=== PATIENT | female | born 1990 | race Caucasian/White ===

== ENCOUNTER → 2016-05-24 | Outpatient (CLI) | payer OTHER ==
[~2016-05-24] MED LIST: ATV1 PO; CALCTAB5 PO; CYAN100020 PO; CYCL10TA6 PO; FING1CAP PO; FLUO20CA36 PO; FRCT/ PO; GADAVIST IV PRN; HYDR-4079 PO; LIDO5DIS10 TD; LORA10TA5 PO; NRN600 PO; OMEP20CA9 PO; ONDA4TAB10 SL; SENN-58 PO; SENN-61 PO; VTMD PO; ZOLP10TA6 PO
--- NOTE | 2016-05-24 12:51 | DIAGNOSTIC IMAGING REPORT ---
MRI OF THE BRAIN COMBO CLINICAL HISTORY: Multiple sclerosis. Headache and dizziness. COMPARISON STUDY: Prior MRI examinations of the brain, most recently dated 10/31/2015. TECHNIQUE: MRI of the brain was performed utilizing various T1 and T2-weighted sequences in the axial, sagittal, and coronal planes. Contrast-enhanced sequences were acquired following the administration of 10.4 cc of Gadavist. The examination is performed utilizing the multiple sclerosis protocol. FINDINGS: Brain parenchyma: Again seen are numerous foci of T2 signal abnormality within the subcortical and periventricular white matter. This is consistent with the reported history of multiple sclerosis, and has not significant change from 10/31/2015. Lesions are also identified within the brain stem in the right cerebral peduncle. A 5 mm focus of abnormal enhancement is seen in the right parietal region on axial image #16. No additional foci of abnormal enhancement are identified on the postcontrast images. There is no hemorrhage or mass effect. There is no restricted diffusion to suggest acute ischemia. No enhancing mass lesion is identified. Rose-white matter differentiation is preserved. No extra-axial fluid collection is seen. The cerebellar tonsils are normal in configuration. Ventricles, sulci, and cisterns: Normal in configuration. Pituitary and sella: Unremarkable. Intracranial vasculature: Normal flow voids are maintained at the skull base. Orbits: The bony orbits are grossly intact. Orbital contents are normal in appearance. Sinuses and mastoids: There is a large retention cyst in the left maxillary antrum. The remaining paranasal sinuses and the mastoid air cells are clear. Calvarium: Unremarkable. Cervical cord: Partially visualized cervical spinal cord is normal in morphology and signal intensity. IMPRESSION: 1. There are numerous foci of T2 signal abnormality seen throughout the subcortical and periventricular white matter as detailed above. These are typical in appearance for the reported clinical history of multiple sclerosis, and the distribution has not significantly changed from 10/31/2015. 2. There is a 5 mm focus of abnormal enhancement within the right parietal white matter which suggests a focus of active demyelination. No additional foci of abnormal enhancement are seen. 3. There is no hemorrhage or evidence of acute ischemia. Electronically signed by: Derian Hanks M.D. 05/24/2016 12:49 PM Dictated Date/Time: 05/24/2016 12:42 PM
== END | disposition home or self-care (01) ==
LOC: C.MRIBC 11:28
PROVIDERS: ATTEND Psychiatry & Neurology Neurology
DX: G35 Multiple sclerosis (principal); R26.9 Unspecified abnormalities of gait and mobility; R51 Headache; R76.0 Raised antibody titer; Z79.899 Other long term (current) drug therapy; G43.709 Chronic migraine without aura, not intractable, without status migrainosus; F32.9 Major depressive disorder, single episode, unspecified; F41.9 Anxiety disorder, unspecified; E55.9 Vitamin D deficiency, unspecified; Z88.5 Allergy status to narcotic agent

== ENCOUNTER → 2016-09-02 | Outpatient (CLI) | payer OTHER ==
[~2016-09-02] MED LIST changes: -GADAVIST IV PRN; -HYDR-4079 PO
[2016-09-07 21:53] LABS: HERPES SIMPLEX CULT SOURCE GENITAL-VULVA; HERPES SIMPLEX VIRUS CULT ISOLATED (NOT ISOLATED)
[2016-09-08 08:36] LABS: HSVTYPE2REFLEX ONLY!DON'T ORDR ISOLATED (NOT ISOLATED)
== END | disposition home or self-care (01) ==
LOC: C.LABSPEC 13:30
PROVIDERS: ATTEND Physician Assistant
DX: N76.6 Ulceration of vulva (principal)

== ENCOUNTER → 2016-09-24 | Outpatient (CLI) | payer OTHER ==
[~2016-09-24] MED LIST changes: +GADAVIST IV PRN
--- NOTE | 2016-09-24 08:53 | DIAGNOSTIC IMAGING REPORT ---
Brain MRI WITH AND WITHOUT CONTRAST HISTORY: Multiple sclerosis. Abnormal gait. TECHNIQUE: Multiplanar multisequence MRI of the brain was performed both before and after the intravenous administration of contrast. COMPARISON STUDY: Brain MRI 05/24/2016. FINDINGS: There are no areas of restricted diffusion to suggest acute infarction. The midline structures are intact. Stable 2 cm retention cyst within the left maxillary sinus. The orbits are unremarkable. Multiple scattered foci of T2 hyperintensity seen within the white matter of the supratentorial brain, minerva, and right middle cerebellar peduncle are again noted. The majority of these are not significantly changed. This is consistent with the patient's history of multiple sclerosis. Increase in size in the 1 cm T2 hyperintense focus within the subcortical white matter the right parietal lobe best seen on coronal T2 sequence image 17. This previously measured 5 mm. In addition, this area demonstrates enhancement consistent with active demyelination. The mastoid air cells are clear. The ventricles and sulci are within normal limits for age. There is no mass, hematoma, midline shift. The major vascular flow-voids at the skull base are well maintained. Postcontrast sequences show no areas of abnormal enhancement. IMPRESSION: Increase in size in a 1 cm focus of demyelination within the right parietal subcortical white matter. This also demonstrates enhancement consistent with active demyelination which remains unchanged from the prior study. The remaining white matter plaques within the supratentorial and infratentorial brain are not significantly changed consistent with the patient's history of multiple sclerosis. Electronically signed by: Antonio Hernandez M.D. 09/24/2016 8:52 AM Dictated Date/Time: 09/24/2016 8:44 AM
== END | disposition home or self-care (01) ==
LOC: C.MRI 07:39
PROVIDERS: ATTEND Psychiatry & Neurology Neurology
DX: G35 Multiple sclerosis (principal)

== ENCOUNTER → 2017-04-05 | Outpatient (CLI) | payer OTHER ==
[~2017-04-05] MED LIST changes: -GADAVIST IV PRN; -LORA10TA5 PO; +LORA10TA6 PO
== END | disposition home or self-care (01) ==
LOC: C.PATHSPEC 17:47
PROVIDERS: ATTEND Surgery
DX: L98.8 Other specified disorders of the skin and subcutaneous tissue (principal)

== ENCOUNTER 2018-05-08 11:08 | Inpatient (IN) ==
[2018-05-08] MEDS ORDERED: SODIUM CHLORIDE 0.9% 1000ML 1,000 ML IV ONE (11:34)
[2018-05-08] MEDS ORDERED: HYDROmorphone INJ 1 MG/ML SYRINGE IV STA (11:34)
[2018-05-08] MEDS ORDERED: ONDANSETRON INJ 2 MG/ML 2 ML VIAL IV STA (11:34)
--- NOTE | 2018-05-08 11:44 | Emergency Department Note ---
History of Present Illness General Chief complaint: Flank Pain Stated complaint: MS FLAIR & KIDNEY STONE PAIN Time Seen by Provider: 05/08/18 11:18 History of Present Illness This patient is a 27-year-old female that returns to the emergency department ambulatory with complaints of worsening left flank pain, decrease in urination and nausea for the last several days. The patient was seen in the emergency department on 05/06. A CAT scan was performed and showed left-sided kidney stones. The patient was sent home with oxycodone, which has not been helping with the left flank pain. She currently rates her discomfort a 12/05. It is worse with movement. The patient is also complaining of a "MS flare." Associated symptoms include headache, abnormal gait, fatigue and slurred speech. The patient's mother is also concerned that she is not emptying her bladder. She is unsure if this is related to the ureteral stone versus an MS flare. Home Medications Home Medications Medication Instructions Recorded Confirmed Type duftskytks-iuheexlnhyopr-obgl 1 - 2 tab PO BID PRN 05/06/18 05/08/18 History [Fioricet] calcium carbonate [Calcium 600] 600 mg PO QAM 05/06/18 05/08/18 History cyclobenzaprine 5 - 10 mg PO BID PRN 05/06/18 05/08/18 History dextroamphetamine-amphetamine 10 mg PO QAM 05/06/18 05/08/18 History divalproex 250 mg PO BID 05/06/18 05/08/18 History docusate sodium [Colace] 100 mg PO BID PRN 05/06/18 05/08/18 History ergocalciferol (vitamin D2) 50,000 unit PO 2XWK 05/06/18 05/08/18 History etonogestrel [Nexplanon] 1 dose SUBDERMAL CONTINOUS 05/06/18 05/08/18 History fingolimod [Gilenya] 0.5 mg PO QAM 05/06/18 05/08/18 History gabapentin 600 mg PO BID 05/06/18 05/08/18 History hydrocodone-acetaminophen 1 tab PO UD PRN 05/06/18 05/08/18 History lidocaine 1 patch TOPICAL DAILY PRN 05/06/18 05/08/18 History loratadine [Claritin] 10 mg PO QAM 05/06/18 05/08/18 History lorazepam 2 mg PO HS PRN 05/06/18 05/08/18 History ondansetron 4 mg PO TID PRN 05/06/18 05/08/18 History oxycodone 5 - 10 mg PO Q6H PRN #15 cap 05/06/18 05/08/18 Rx pantoprazole 40 mg PO QAM 05/06/18 05/08/18 History quetiapine 50 mg PO BID 05/06/18 05/08/18 History sennosides [senna] 8.6 mg PO BID 05/06/18 05/08/18 History topiramate 100 mg PO BID 05/06/18 05/08/18 History zolpidem 10 mg PO HS 05/06/18 05/08/18 History ibuprofen 800 mg PO UD 05/08/18 05/08/18 History tamsulosin [Flomax] 0.4 mg PO HS 05/08/18 05/08/18 History Allergies Allergy/AdvReac Type Severity Reaction Status Date / Time codeine Allergy Unknown HTN Verified 05/08/18 12:37 latex Allergy Unknown RASH Verified 05/08/18 12:37 morphine Allergy Unknown HTN, Verified 05/08/18 12:37 LIGHTHEADED Past Med/Surg History Medical History Multiple sclerosis Social History Current Living Situation: Alone Other Information That Helps Us Care for You: No Feels Safe at Home: Yes Safety Concerns: Feels Safe At This Time Smoking Status: Never smoker Hx Alcohol Use: Yes Alcohol type: wine Alcohol Intake Frequency: a few times a month Hx Substance Use: No Beliefs That Will Affect Care: None Communication Ability: Effective Lining Closer Required: No Review of Systems A total of 10 systems reviewed and were otherwise negative Physical Exam Vital Signs Vital Signs - 24 hr 05/08/18 11:11 05/08/18 15:00 05/08/18 17:48 Temperature 37 C Temperature Source Oral Sepsis Recent Fever Within 48 Hours No Sepsis Action Taken by Nursing No Action Required Pulse Rate 117 H 89 Pulse Rate [Finger] 76 Pulse Rhythm Regular Pulse Rhythm [Finger] Regular Pulse Strength Normal Pulse Strength [Finger] Normal Respiratory Rate 20 18 18 Respiratory Effort / Characteristics Non-Labored Spontaneous Non-Labored Spontaneous Respiratory Depth Normal Normal Respiratory Pattern Regular Blood Pressure 121/77 135/84 Blood Pressure [Left Arm] Blood Pressure [Right Arm] 123/91 Blood Pressure Mean 91 Blood Pressure Mean [Left Arm] Blood Pressure Mean [Right Arm] 101 Blood Pressure Position [Left Arm] Pulse Oximetry 97 98 99 Oxygen Delivery Method Room Air Room Air Room Air 05/08/18 18:27 Temperature 36.5 C Temperature Source Oral Sepsis Recent Fever Within 48 Hours Sepsis Action Taken by Nursing Pulse Rate Pulse Rate [Finger] 97 H Pulse Rhythm Pulse Rhythm [Finger] Regular Pulse Strength Pulse Strength [Finger] Normal Respiratory Rate 18 Respiratory Effort / Characteristics Non-Labored Respiratory Depth Normal Respiratory Pattern Regular Blood Pressure Blood Pressure [Left Arm] 134/89 Blood Pressure [Right Arm] Blood Pressure Mean Blood Pressure Mean [Left Arm] 104 Blood Pressure Mean [Right Arm] Blood Pressure Position [Left Arm] Sitting Pulse Oximetry 99 Oxygen Delivery Method Room Air Constitutional WD/WN, vitals as above Eyes PERRL, conjunctivae normal, anicteric sclerae ENMT Oral mucosa slightly dry Neck trachea midline Respiratory normal respiratory effort, lungs clear to auscultation Cardiovascular RRR, no murmur, no edema Gastrointestinal (Abdomen) normal bowel sounds, soft, nontender, no hepatosplenomegaly Left-sided CVA tenderness noted. Musculoskeletal no cyanosis or clubbing, extremities motor strength 5/5 Skin Warm and dry Neurologic Cranial nerves grossly intact. Cerebellar function intact. Slightly slow to answer questions. Occasional slurred speech noted. Lymphatic No lymphadenopathy appreciated. Course Patient was seen and examined Vital signs including blood pressure were reviewed medications list was verified with patient Labs were obtained, and a saline lock was established Dilaudid 1 mg IV, Zofran 4 mg IV and 1 L of normal saline ordered Imaging was performed and reviewed Upon reassessment, the patient was still complaining of pain. She was given an additional dose of Dilaudid. Her workup was reviewed. She was ordered Rocephin 1 g IV. The patient was reassessed and appeared more comfortable. I discussed her workup with the patient and the patient's mother. They voiced understanding, and were in agreement with my plan The case was also discussed with my supervising physician I then spoke with the [facility] service. They kindly agreed to evaluate the patient for possible further diagnosis and treatment. Consultations Consultation #1: Dr. Yoon Administered Medications Divalproex Sodium (Depakote Delay Release) 250 mg PO BID ANCA Stop: 06/07/18 20:59 Last Admin: 05/08/18 21:06 Dose: 250 mg Gabapentin (Neurontin) 600 mg PO BID ANCA Stop: 06/07/18 20:59 Last Admin: 05/08/18 21:07 Dose: 600 mg Oxycodone HCl (Roxicodone Immediate Rel) 5 mg PO Q6H PRN PRN Reason: Severe Pain Stop: 05/18/18 18:26 Last Admin: 05/08/18 20:04 Dose: 5 mg Quetiapine Fumarate (Seroquel) 50 mg PO BID ANCA Stop: 06/07/18 20:59 Last Admin: 05/08/18 21:07 Dose: 50 mg Sennosides (Senokot) 8.6 mg PO BID ANCA Stop: 06/07/18 20:59 Last Admin: 05/08/18 21:07 Dose: 8.6 mg Tamsulosin HCl (Flomax) 0.4 mg PO HS ANCA Stop: 06/07/18 20:59 Last Admin: 05/08/18 21:08 Dose: 0.4 mg Topiramate (Topamax) 100 mg PO BID ANCA Stop: 06/07/18 20:59 Last Admin: 05/08/18 21:07 Dose: 100 mg Discontinued Medications Hydromorphone HCl (Dilaudid) 1 mg IV NOW STA Stop: 05/08/18 11:35 Last Admin: 05/08/18 11:57 Dose: 1 mg Hydromorphone HCl (Dilaudid) 0.5 mg IV NOW STA Stop: 05/08/18 15:23 Last Admin: 05/08/18 15:28 Dose: 0.5 mg Sodium Chloride (Nss 1000ml) 1,000 mls @ 999 mls/hr IV .Q1H1M ONE Stop: 05/08/18 12:34 Last Infusion: 05/08/18 15:09 Dose: 0 mls/hr Admin: 05/08/18 11:58 Dose: 999 mls/hr Ceftriaxone Sodium (Rocephin) 1,000 mg in 50 mls @ 100 mls/hr IV NOW STA Stop: 05/08/18 14:10 Last Infusion: 05/08/18 15:32 Dose: 0 mls/hr Admin: 05/08/18 15:01 Dose: 100 mls/hr Ondansetron HCl (Zofran) 4 mg IV NOW STA Stop: 05/08/18 11:35 Last Admin: 05/08/18 11:57 Dose: 4 mg Medical Decision Making Medical Records Attestation: I reviewed the patient's medical records. Home Medications Current Medication List: was personally reviewed by me Laboratory Data Attestation: I reviewed the patient's lab results. Result diagrams: 05/08/18 11:41 05/08/18 11:41 Lab Results 05/08/18 05/08/18 05/08/18 Range/Units 11:41 11:41 11:50 WBC 8.38 (4.8-10.8) K/uL RBC 4.44 (4.2-5.4) M/uL Hgb 12.2 (12.0-16.0) g/dL Hct 37.4 (37-47) % MCV 84.2 (80-100) fL MCH 27.5 (25-34) pg MCHC 32.6 (32-36) g/dL RDW Std Deviation 44.4 (36.4-46.3) fL RDW Coeff of Kizzy 14.3 (11.5-14.5) % Plt Count 213 (130-400) K/uL MPV 9.7 (7.4-10.4) fL Immature Gran % (Auto) 0.2 % Neut % (Auto) 83.5 % Lymph % (Auto) 10.5 % Sullivan % (Auto) 5.0 % Eos % (Auto) 0.7 % Baso % (Auto) 0.1 % Immature Gran # (Auto) 0.02 (0.00-0.02) K/uL Neut # (Auto) 6.99 H (1.4-6.5) K/uL Lymph # (Auto) 0.88 L (1.2-3.4) K/uL Sullivan # (Auto) 0.42 (0.11-0.59) K/uL Eos # (Auto) 0.06 (0-0.5) K/uL Baso # (Auto) 0.01 (0-0.2) K/uL Sodium 140 (136-145) mmol/L Potassium 4.1 (3.5-5.1) mmol/L Chloride 110 H (98-107) mmol/L Carbon Dioxide 23 (21-32) mmol/L Anion Gap 7.0 (3-11) BUN 16 (7-18) mg/dl Creatinine 1.05 (0.6-1.2) mg/dl Est Cr Clr Drug Dosing 92.5 ml/min Est GFR ( Amer) 83.7 Est GFR (Non-Af Amer) 72.2 BUN/Creatinine Ratio 15.0 (10-20) Glucose 97 (70-99) mg/dl Calcium 8.4 L (8.5-10.1) mg/dl Total Bilirubin 0.2 (0.2-1) mg/dl AST 28 (15-37) U/L ALT 23 (12-78) U/L Alkaline Phosphatase 69 (45-117) U/L Total Protein 7.2 (6.4-8.2) gm/dl Albumin 3.5 (3.4-5.0) gm/dl Globulin 3.7 (2.5-4.0) gm/dl Albumin/Globulin Ratio 1.0 (0.9-2) Urine Color Urine Appearance (Clear) Urine pH (4.5-7.5) Ur Specific [place] (1.000-1.030) Urine Protein (Negative) Urine Glucose (UA) (Negative) Urine Ketones (Negative) Urine Blood (Negative) Urine Nitrite (Negative) Urine Bilirubin (Negative) Urine Urobilinogen (Negative) Ur Leukocyte Esterase (Negative) Urine WBC (Auto) (0-5) /hpf Urine RBC (Auto) (0-4) /hpf U Hyaline Cast (Auto) (0-5) /lpf U Epithel Cells (Auto) (0-5) /lpf Urine Bacteria (Auto) (Negative) Urine Yeast POC Ur Test NEG (NEG) 05/08/18 Range/Units 11:50 WBC (4.8-10.8) K/uL RBC (4.2-5.4) M/uL Hgb (12.0-16.0) g/dL Hct (37-47) % MCV (80-100) fL MCH (25-34) pg MCHC (32-36) g/dL RDW Std Deviation (36.4-46.3) fL RDW Coeff of Kizzy (11.5-14.5) % Plt Count (130-400) K/uL MPV (7.4-10.4) fL Immature Gran % (Auto) % Neut % (Auto) % Lymph % (Auto) % Sullivan % (Auto) % Eos % (Auto) % Baso % (Auto) % Immature Gran # (Auto) (0.00-0.02) K/uL Neut # (Auto) (1.4-6.5) K/uL Lymph # (Auto) (1.2-3.4) K/uL Sullivan # (Auto) (0.11-0.59) K/uL Eos # (Auto) (0-0.5) K/uL Baso # (Auto) (0-0.2) K/uL Sodium (136-145) mmol/L Potassium (3.5-5.1) mmol/L Chloride (98-107) mmol/L Carbon Dioxide (21-32) mmol/L Anion Gap (3-11) BUN (7-18) mg/dl Creatinine (0.6-1.2) mg/dl Est Cr Clr Drug Dosing ml/min Est GFR ( Amer) Est GFR (Non-Af Amer) BUN/Creatinine Ratio (10-20) Glucose (70-99) mg/dl Calcium (8.5-10.1) mg/dl Total Bilirubin (0.2-1) mg/dl AST (15-37) U/L ALT (12-78) U/L Alkaline Phosphatase (45-117) U/L Total Protein (6.4-8.2) gm/dl Albumin (3.4-5.0) gm/dl Globulin (2.5-4.0) gm/dl Albumin/Globulin Ratio (0.9-2) Urine Color Yellow Urine Appearance Turbid H (Clear) Urine pH 7.5 (4.5-7.5) Ur Specific [place] 1.018 (1.000-1.030) Urine Protein Negative (Negative) Urine Glucose (UA) Negative (Negative) Urine Ketones Negative (Negative) Urine Blood 1+ H (Negative) Urine Nitrite Negative (Negative) Urine Bilirubin Negative (Negative) Urine Urobilinogen Negative (Negative) Ur Leukocyte Esterase 2+ H (Negative) Urine WBC (Auto) >30 H (0-5) /hpf Urine RBC (Auto) 0-4 (0-4) /hpf U Hyaline Cast (Auto) 1-5 (0-5) /lpf U Epithel Cells (Auto) >30 H (0-5) /lpf Urine Bacteria (Auto) 2+ H (Negative) Urine Yeast Not Reportable POC Ur Test (NEG) Imaging Data Attestation: I personally reviewed and interpreted this imaging study as follows : Radiologist's Impression: Renal ultrasound IMPRESSION: No hydronephrosis. Electronically signed by: Antonio Hernandez M.D. 05/08/2018 2:13 PM Dictated: 05/08/18 1412 Transcribed: 05/08/18 141 KUB IMPRESSION: Left-sided nephrolithiasis. No ureteral calculi identified. Electronically signed by: Antonio Hernandez M.D. 05/08/2018 2:12 PM Dictated: 05/08/18 141 Transcribed: 05/08/18 141 Blood Pressure Blood Pressure Findings: Normal blood pressure MDM Narrative Differential diagnosis: Ureteral stone, pyelonephritis, UTI, musculoskeletal pain, ovarian cyst, multiple sclerosis flare, sepsis, atypical migraine, polypharmacy, among others This patient is a 27-year-old female who presents to the emergency department with neurologic symptoms and worsening left flank pain. She was recently diagnosed with a ureteral stone as noted above. Due to her recent CT, I opted to do an ultrasound and KUB. No signs of hydronephrosis or pyelonephritis were noticed on imaging. Her labs reveal no leukocytosis. She is not anemic. Her urinalysis is consistent with contamination, but also a UTI. Given her urinary symptoms and slightly altered state, I did not feel comfortable sending the patient home. [facility] kindly agreed to evaluate the patient for further workup and treatment. Impression & Plan Altered mental status, Pyelonephritis Discharge Plan Visit Data *Final* Discharge Date/Time: 05/08/18 17:48 Chief Complaint: Flank Pain Stated Complaint: MS FLAIR & KIDNEY STONE PAIN ED Provider: Derian Alvarenga ED Midlevel Provider: Harmony Guevara Discharge Problem: Altered mental status, Pyelonephritis Patient Disposition: Admitted As Inpatient Condition: Fair Discharge Instructions Interventions: ED Discharge Assessment Last Done: 05/08/18 17:48
[2018-05-08 11:52] LABS: Basophils # (auto) 0.01 K/uL (0-0.2); Basophils % (auto) 0.1 %; Eosinophils # (auto) 0.06 K/uL (0-0.5); Eosinophils % (auto) 0.7 %; Hematocrit (blood only) 37.4 % (37-47); Hemoglobin 12.2 g/dL (12.0-16.0); Immature Granulocytes # (auto) 0.02 K/uL (0.00-0.02); Immature Granulocytes % (auto) 0.2 %; Lymphocytes # (auto) 0.88 K/uL (1.2-3.4); Lymphocytes % (auto) 10.5 %; Mean Corpuscular Hgb Conc 32.6 g/dL (32-36); Mean Corpuscular Volume 84.2 fL (80-100); Mean Platelet Volume 9.7 fL (7.4-10.4); Monocytes # (auto) 0.42 K/uL (0.11-0.59); Neutrophils # (auto) 6.99 K/uL (1.4-6.5); Neutrophils % (auto) 83.5 %; Platelet Count 213 K/uL (130-400); RDW Coefficient of Variation 14.3 % (11.5-14.5); RDW Standard Deviation 44.4 fL (36.4-46.3); Red Blood Count 4.44 M/uL (4.2-5.4); White Blood Count 8.38 K/uL (4.8-10.8)
[2018-05-08 12:08] LABS: Albumin Level 3.5 gm/dl (3.4-5.0); Calcium 8.4 mg/dl (8.5-10.1); Creatinine Clr Calc Pharmacy 92.5 ml/min; Est GFR (African American) 83.7; Est GFR (Non-African American) 72.2; Potassium 4.1 mmol/L (3.5-5.1)
[2018-05-08 12:11] LABS: Bilirubin,Total 0.2 mg/dl (0.2-1); Globulin 3.7 gm/dl (2.5-4.0); Total Protein 7.2 gm/dl (6.4-8.2)
[2018-05-08 12:57] LABS: Appearance Urine Turbid (Clear); Bacteria Urine Automated 2+ (Negative); Bilirubin Urine Negative (Negative); Blood Urine 1+ (Negative); Color Urine Yellow; Epithelial Cell Urine Auto >30 /lpf (0-5); Glucose Urine UA Negative (Negative); Ketones Urine Negative (Negative); Leukocyte Esterase Urine 2+ (Negative); Nitrite Urine Negative (Negative); Protein Urine Negative (Negative); Specific Gravity Urine 1.018 (1.000-1.030); Urobilinogen Urine Negative (Negative); WBC Urine Automated >30 /hpf (0-5); pH Urine 7.5 (4.5-7.5)
[2018-05-08 13:17] LABS: RBC Urine Automated 0-4 /hpf (0-4)
--- NOTE | 2018-05-08 14:14 | XRay Report ---
KUB HISTORY: L flank pain hx stones COMPARISON: KUB 03/28/2014. FINDINGS: The bowel gas pattern is unremarkable. There are no dilated loops of small bowel to suggest an obstruction. The right renal shadow is partially obscured by overlying bowel gas. No right renal calculi. No ureteral calculi identified. There is a 3 mm stone within the lower pole the left kidney . Moderate well-formed stool within the colon. No pneumoperitoneum or pneumatosis. IMPRESSION: Left-sided nephrolithiasis. No ureteral calculi identified. Electronically signed by: Antonio Hernandez M.D. 05/08/2018 2:12 PM
--- NOTE | 2018-05-08 14:15 | Ultrasound Report ---
RENAL ULTRASOUND HISTORY: L flank pain hx stones COMPARISON: Abdomen and pelvis CT 05/06/2018. FINDINGS: Right kidney: 12.8 cm. No renal calculi identified by sonography. No hydronephrosis. Normal corticome dullary differentiation and cortical thickness. Left kidney: 13.1 cm. No renal calculi identified by sonography. No hydronephrosis. Normal corticomed ullary differentiation and cortical thickness. Bladder: No bladder wall thickening. The bilateral ureteral jets were identified. IMPRESSION: No hydronephrosis. Electronically signed by: Antonio Hernandez M.D. 05/08/2018 2:13 PM
--- NOTE | 2018-05-08 14:16 | Emergency Department Note ---
ED Visit Note Patient was seen by our PA/ASSEMBLER ERECTOR. I was involved in the patient's care and did evaluate the patient myself. I was involved in the care throughout the ER stay. The patient presents with ongoing flank discomfort. She has a known ureteral stone. She now appears also to have a potential UTI/pyelonephritis. She is having a flare of her MS. Given the failed outpatient treatment, given the concern now for possible infection, a hospital stay was felt warranted. She has received IV saline, pain control, IV antibiotics. .
[2018-05-08] MEDS: cefTRIAXone SODIUM 1,000 MG/50 ML BAG IV STA ×2 (14:18→15:01)
[2018-05-08] MEDS ORDERED: HYDROmorphone INJ 0.5 MG/0.5 ML SYR IV STA (15:22)
[2018-05-08] MEDS ORDERED: BUTALBITAL/ACETAMIN/CAFFEINE TAB PO PRN (18:27)
[2018-05-08] MEDS ORDERED: DOCUSATE SODIUM 100 MG CAP PO PRN (18:27)
[2018-05-08] MEDS ORDERED: CYCLOBENZAPRINE HCL 10 MG TAB PO PRN (18:27)
[2018-05-08] MEDS ORDERED: ACETAMINOPHEN 325 MG TAB PO PRN (18:27)
[2018-05-08] MEDS ORDERED: ZOLPIDEM TARTRATE 10 MG TAB PO PRN (18:27)
[2018-05-08] MEDS ORDERED: OXYCODONE HCL IR 5 MG TAB (IMMEDIATE RELEASE) PO PRN (18:27)
[2018-05-08] MEDS ORDERED: ONDANSETRON 4 MG OD TAB PO PRN (18:27)
--- NOTE | 2018-05-08 20:43 | History & Physical Report ---
Date of Service May 08, 2018 Assessment & Plan (1) Pyelonephritis: Experiencing dysuria, hematuria, fever at home, worsening flank pain. CT 05/06/18 demonstrated left ureteral calculus. UA shows WBC's and bacteria. Probably pyelonephritis. Does not appear to be septic. Blood and urine cultures obtained in ED. Started on ceftriaxone which will be continued pending culture results. (2) Ureteral calculus, left: History of nephrolithiasis, seen by [facility] in the past. Seen in ED 05/06/18 with left flank pain. CT demonstrated left ureteral calculus with associated hydronephrosis. No calculi seen on today's KUB. US did not reveal any hydronephrosis. Management of UTI as discussed above. May need follow-up CT and/or Urology consultation if symptoms persist. (3) Multiple sclerosis: History of MS. Now with headache, somnolence, slurred speech. Continue fingolimod. Consult Neurology (Dr. Subramanian). (4) DVT prophylaxis: Low risk for VTE per IMPROVE risk assessment model, but at increased risk due to immobility and infection. No anticoagulants at this time because of hematuria. SCD's. Ambulate. (5) Discharge planning issues: Anticipated discharge to home. Family Medicine follow-up with Dr. Dale. Neurology follow-up with Dr. Subramanian. History of Present Illness Chief Complaint: flank pain, somnolence Primary Care Provider: Tracee Dale 27 YO female followed by Dr. Dale for Family Medicine and Dr. Subramanian for Neurology. History of multiple sclerosis and other problems noted below. History of nephrolithiasis, followed by [facility] in the past. Seen in ED 05/06/18 with left flank pain. CT of abdomen and pelvis demonstrated a 4 mm calculus in the left proximal ureter with mild-moderate hydronephrosis. She was afebrile. WBC was normal. UA demonstrated only a few WBC's and many epithelial cells. Discharged to home with prescriptions for tamsulosin and oxycodone. Returned to ED today with worsening flank pain and nausea. Patient states that she had a fever yesterday. Experiencing dysuria and hematuria. Concerned that she is having a flare of MS. Experiencing headache, slurred speech, unsteady gait. Allergies Allergy/AdvReac Type Severity Reaction Status Date / Time codeine Allergy Unknown HTN Verified 05/08/18 12:37 latex Allergy Unknown RASH Verified 05/08/18 12:37 morphine Allergy Unknown HTN, Verified 05/08/18 12:37 LIGHTHEADED Home Medications Home Medications Medication Instructions Recorded Confirmed Type [id number] 1 - 2 tab PO BID PRN 05/06/18 05/08/18 History [Fioricet] calcium carbonate [Calcium 600] 600 mg PO QAM 05/06/18 05/08/18 History cyclobenzaprine 5 - 10 mg PO BID PRN 05/06/18 05/08/18 History dextroamphetamine-amphetamine 10 mg PO QAM 05/06/18 05/08/18 History divalproex 250 mg PO BID 05/06/18 05/08/18 History docusate sodium [Colace] 100 mg PO BID PRN 05/06/18 05/08/18 History ergocalciferol (vitamin D2) 50,000 unit PO 2XWK 05/06/18 05/08/18 History etonogestrel [Nexplanon] 1 dose SUBDERMAL CONTINOUS 05/06/18 05/08/18 History fingolimod [Gilenya] 0.5 mg PO QAM 05/06/18 05/08/18 History gabapentin 600 mg PO BID 05/06/18 05/08/18 History hydrocodone-acetaminophen 1 tab PO UD PRN 05/06/18 05/08/18 History lidocaine 1 patch TOPICAL DAILY PRN 05/06/18 05/08/18 History loratadine [Claritin] 10 mg PO QAM 05/06/18 05/08/18 History lorazepam 2 mg PO HS PRN 05/06/18 05/08/18 History ondansetron 4 mg PO TID PRN 05/06/18 05/08/18 History oxycodone 5 - 10 mg PO Q6H PRN #15 cap 05/06/18 05/08/18 Rx pantoprazole 40 mg PO QAM 05/06/18 05/08/18 History quetiapine 50 mg PO BID 05/06/18 05/08/18 History sennosides [senna] 8.6 mg PO BID 05/06/18 05/08/18 History topiramate 100 mg PO BID 05/06/18 05/08/18 History zolpidem 10 mg PO HS 05/06/18 05/08/18 History ibuprofen 800 mg PO UD 05/08/18 05/08/18 History tamsulosin [Flomax] 0.4 mg PO HS 05/08/18 05/08/18 History Past Med/Surg History Medical History Depression (Chronic) Multiple sclerosis (Chronic) Nephrolithiasis (Chronic) Surgical History Status post tonsillectomy (Chronic) Family History Mother Asthma Cervical cancer Social History Current Living Situation: Alone Other Information That Helps Us Care for You: No Feels Safe at Home: Yes Safety Concerns: Feels Safe At This Time Smoking Status: Never smoker Hx Alcohol Use: Yes Alcohol type: wine Alcohol Intake Frequency: a few times a month Hx Substance Use: No Beliefs That Will Affect Care: None Communication Ability: Effective It Business Process Architect Required: No Review of Systems Constitutional: + fever; no weight loss Eyes: no diplopia and no worsening vision Ear, Nose, Mouth, Throat: + nasal congestion; no sore throat Respiratory: no cough and no dyspnea Cardiovascular: no chest pain, no palpitations and no edema Gastrointestinal: + nausea and + diarrhea/loose stools; no constipation, no blood in stools and no melena Genitourinary (Female): as per Subjective / HPI Musculoskeletal: + myalgia; no joint pain Integumentary: no rash and no new lesions Neurologic: as per Subjective / HPI Endocrine: no polydipsia and no polyuria Hematologic / Lymphatic: + easy bruising; no easy bleeding and no lymphadenopathy Physical Exam 2 Vital Signs (Past 24 Hours): Last Vital Signs Temp 36.5 C 05/08/18 18:27 Pulse 97 H 05/08/18 18:27 Resp 18 05/08/18 18:27 BP 134/89 05/08/18 18:27 Pulse Ox 99 05/08/18 18:27 Constitutional: WD/WN, vitals as above no acute distress Eyes: PERRL, conjunctivae normal, anicteric sclerae ENMT: external ear and nose normal, oropharynx normal Neck: trachea midline, no thyromegaly Respiratory: normal respiratory effort, lungs clear to auscultation Cardiovascular: Rate/Rhythm: regular rate Heart Sounds: no gallop, no murmur and no cardiac rub Vessels: no JVD Extremities: normal capillary refill; no calf tenderness and no edema Gastrointestinal (Abdomen): Inspection/Auscultation: normal bowel sounds Percussion/Palpation: + abdomen tender (left flank) and abdomen soft Musculoskeletal: Head/Neck/Chest: neck supple Extremities: strength 5/5 throughout; no cyanosis and no clubbing Skin: no rashes, warm and dry Neurologic: somnolent slow mentation PERRL, EOMI no facial palsy mild dysarthria patellar DTR's 1/2 bilat plantar reflexes downgoing bilat Psychiatric: Orientation: oriented x 3 Lymphatic: no cervical lymphadenopathy Results & Data Laboratory Results Laboratory Results - last 24 hr 05/08/18 05/08/18 05/08/18 11:41 11:41 11:50 WBC 8.38 RBC 4.44 Hgb 12.2 Hct 37.4 MCV 84.2 MCH 27.5 MCHC 32.6 RDW Std Deviation 44.4 RDW Coeff of Kizzy 14.3 Plt Count 213 MPV 9.7 Immature Gran % (Auto) 0.2 Neut % (Auto) 83.5 Lymph % (Auto) 10.5 [place] % (Auto) 5.0 Eos % (Auto) 0.7 Baso % (Auto) 0.1 Immature Gran # (Auto) 0.02 Neut # (Auto) 6.99 H Lymph # (Auto) 0.88 L [place] # (Auto) 0.42 Eos # (Auto) 0.06 Baso # (Auto) 0.01 Sodium 140 Potassium 4.1 Chloride 110 H Carbon Dioxide 23 Anion Gap 7.0 BUN 16 Creatinine 1.05 Est Cr Clr Drug Dosing 92.5 Est GFR ( Amer) 83.7 Est GFR (Non-Af Amer) 72.2 BUN/Creatinine Ratio 15.0 Glucose 97 Calcium 8.4 L Total Bilirubin 0.2 AST 28 ALT 23 Alkaline Phosphatase 69 Total Protein 7.2 Albumin 3.5 Globulin 3.7 Albumin/Globulin Ratio 1.0 Urine Color Urine Appearance Urine pH Ur Specific [place] Urine Protein Urine Glucose (UA) Urine Ketones Urine Blood Urine Nitrite Urine Bilirubin Urine Urobilinogen Ur Leukocyte Esterase Urine WBC (Auto) Urine RBC (Auto) U Hyaline Cast (Auto) U Epithel Cells (Auto) Urine Bacteria (Auto) Urine Yeast POC Ur Test NEG 05/08/18 11:50 WBC RBC Hgb Hct MCV MCH MCHC RDW Std Deviation RDW Coeff of Kizzy Plt Count MPV Immature Gran % (Auto) Neut % (Auto) Lymph % (Auto) [place] % (Auto) Eos % (Auto) Baso % (Auto) Immature Gran # (Auto) Neut # (Auto) Lymph # (Auto) [place] # (Auto) Eos # (Auto) Baso # (Auto) Sodium Potassium Chloride Carbon Dioxide Anion Gap BUN Creatinine Est Cr Clr Drug Dosing Est GFR ( Amer) Est GFR (Non-Af Amer) BUN/Creatinine Ratio Glucose Calcium Total Bilirubin AST ALT Alkaline Phosphatase Total Protein Albumin Globulin Albumin/Globulin Ratio Urine Color Yellow Urine Appearance Turbid H Urine pH 7.5 Ur Specific [place] 1.018 Urine Protein Negative Urine Glucose (UA) Negative Urine Ketones Negative Urine Blood 1+ H Urine Nitrite Negative Urine Bilirubin Negative Urine Urobilinogen Negative Ur Leukocyte Esterase 2+ H Urine WBC (Auto) >30 H Urine RBC (Auto) 0-4 U Hyaline Cast (Auto) 1-5 U Epithel Cells (Auto) >30 H Urine Bacteria (Auto) 2+ H Urine Yeast Not Reportable POC Ur Test Diagnostic Findings KUB FINDINGS: The bowel gas pattern is unremarkable. There are no dilated loops of small bowel to suggest an obstruction. The right renal shadow is partially obscured by overlying bowel gas. No right renal calculi. No ureteral calculi identified. There is a 3 mm stone within the lower pole the left kidney. Moderate well- formed stool within the colon. No pneumoperitoneum or pneumatosis. IMPRESSION: Left-sided nephrolithiasis. No ureteral calculi identified. Electronically signed by: Antonio Hernandez M.D. 05/08/2018 2:12 PM RENAL ULTRASOUND FINDINGS: Right kidney: 12.8 cm. No renal calculi identified by sonography. No hydronephrosis. Normal corticomedullary differentiation and cortical thickness. Left kidney: 13.1 cm. No renal calculi identified by sonography. No hydronephrosis. Normal corticomedullary differentiation and cortical thickness. Bladder: No bladder wall thickening. The bilateral ureteral jets were identified. IMPRESSION: No hydronephrosis. Electronically signed by: Antonio Hernandez M.D. 05/08/2018 2:13 PM
[2018-05-08] MEDS: DIVALPROEX DELAY RELEASE 250 MG TABEC PO SCH (21:06)
[2018-05-08] MEDS: QUETIAPINE FUMARATE 25 MG TABLET PO SCH (21:07)
[2018-05-08] MEDS: TOPIRAMATE 100 MG TAB PO SCH (21:07)
[2018-05-08] MEDS: SENNA 8.6 MG TAB PO SCH (21:07)
[2018-05-08] MEDS: GABAPENTIN 600 MG TAB PO SCH (21:07)
[2018-05-08] MEDS: TAMSULOSIN HCL 0.4 MG CAP PO SCH (21:08)
[2018-05-09] MEDS: D5W AND LACTATED RINGERS 1,000 ML IV SCH ×3 (04:54→23:10)
[2018-05-09 07:33] LABS: Hematocrit (blood only) 32.9 % (37-47); Hemoglobin 10.5 g/dL (12.0-16.0); Mean Corpuscular Hgb Conc 31.9 g/dL (32-36); Mean Corpuscular Volume 86.6 fL (80-100); Platelet Count 194 K/uL (130-400); RDW Coefficient of Variation 14.3 % (11.5-14.5); RDW Standard Deviation 45.2 fL (36.4-46.3)
[2018-05-09 07:45] LABS: BUN Creatinine Ratio 15.1 (10-20); Creatinine Clr Calc Pharmacy 109.3 ml/min; Est GFR (African American) 102.2; Est GFR (Non-African American) 88.2; Potassium 4.2 mmol/L (3.5-5.1)
[2018-05-09] MEDS: FINGOLIMOD PO SCH (08:30)
[2018-05-09] MEDS: LORATADINE 10 MG TAB PO SCH (08:31)
[2018-05-09] MEDS: CALCIUM 600MG + VIT D 400 IU TAB PO SCH (08:31)
[2018-05-09] MEDS: GABAPENTIN 600 MG TAB PO SCH ×2 (08:32→20:42)
[2018-05-09] MEDS: PANTOprazole 40 MG TAB PO SCH (08:32)
[2018-05-09] MEDS: QUETIAPINE FUMARATE 25 MG TABLET PO SCH ×2 (08:32→20:42)
[2018-05-09] MEDS: SENNA 8.6 MG TAB PO SCH ×2 (08:33→20:41)
[2018-05-09] MEDS: DIVALPROEX DELAY RELEASE 250 MG TABEC PO SCH ×2 (08:34→20:42)
[2018-05-09] MEDS: TOPIRAMATE 100 MG TAB PO SCH ×2 (08:35→20:42)
[2018-05-09] MEDS ORDERED: NEXPLANON SCH (09:00)
[2018-05-09] MEDS ORDERED: ERGOCALCIFEROL 50,000 UNITS CAP PO SCH (09:00)
--- NOTE | 2018-05-09 11:43 | Neurology Consultation ---
Date of Consultation May 09, 2018 Assessment & Plan (1) Multiple sclerosis: This is a 27-year-old female who was diagnosed with multiple sclerosis in 2010. She follows regularly with Dr. Subramanian and has been taking Gilenya for her MS as well as several other medications for migraines, fatigue, and mood. She is currently admitted with a suspected urinary tract infection versus pyelonephritis and there is some concern regarding whether or not she could be experiencing an MS exacerbation recently. Although her neurological signs and symptoms could be chronic, potentially worse in the context of her recent infection, a recent MS relapse cannot be excluded on clinical grounds. Furthermore, it looks like it is been nearly 2 years since her last MRI to assess the status of her demyelinating disease. I will order an up-to-date brain and cervical spine MRI for this patient. If there is any evidence of active lesions would consider treating with Solu-Medrol. Otherwise, continue with Gilenya and other outpatient medications. Patient reports that her migraines are stable currently. History of Present Illness Reason for Consultation: Multiple sclerosis, patient known to Dr. Subramanian Requesting Physician: Hollis Yoon MD Attending Physician: Ann Andre MD History of Present Illness The patient is a 27-year old female who was diagnosed in 2010 according to the outpatient record. She has been following with Dr. Subramanian since that time and had initially been treated with Copaxone although her disease modifying therapy was changed to Gilenya in 2014. She had an episode of right optic neuritis in the past and is experienced other chronic symptomatology of variable intensity including periodic shocklike sensations throughout her body, urinary incontinence, poor balance, chronic fatigue, and impaired concentration. In addition to her disease modifying therapy, Efremenya, Dr. Subramanian has been prescribing several other medications to address various symptoms including Adderall for MS associated fatigue, Seroquel for mood, Ambien for insomnia, as well as topiramate, Depakote, and gabapentin for chronic migraines which the patient indicates are actually well controlled. This patient's last brain MRI was completed in August 2016 and revealed an active lesion within the right parietal lobe at that time. She is currently admitted for further evaluation and management of suspected pyelonephritis. There is some concern as to whether or not her MS symptoms are if she could be experiencing an MS exacerbation. Allergies Allergy/AdvReac Type Severity Reaction Status Date / Time codeine Allergy Unknown HTN Verified 05/08/18 12:37 latex Allergy Unknown RASH Verified 05/08/18 12:37 morphine Allergy Unknown HTN, Verified 05/08/18 12:37 LIGHTHEADED Home Medications Home Medications Medication Instructions Recorded Confirmed Type eqsponzqwh-zfplkdnkeicaw-asmm 1 - 2 tab PO BID PRN 05/06/18 05/08/18 History [Fioricet] calcium carbonate [Calcium 600] 600 mg PO QAM 05/06/18 05/08/18 History cyclobenzaprine 5 - 10 mg PO BID PRN 05/06/18 05/08/18 History dextroamphetamine-amphetamine 10 mg PO QAM 05/06/18 05/08/18 History divalproex 250 mg PO BID 05/06/18 05/08/18 History docusate sodium [Colace] 100 mg PO BID PRN 05/06/18 05/08/18 History ergocalciferol (vitamin D2) 50,000 unit PO 2XWK 05/06/18 05/08/18 History etonogestrel [Nexplanon] 1 dose SUBDERMAL CONTINOUS 05/06/18 05/08/18 History fingolimod [Gilenya] 0.5 mg PO QAM 05/06/18 05/08/18 History gabapentin 600 mg PO BID 05/06/18 05/08/18 History hydrocodone-acetaminophen 1 tab PO UD PRN 05/06/18 05/08/18 History lidocaine 1 patch TOPICAL DAILY PRN 05/06/18 05/08/18 History loratadine [Claritin] 10 mg PO QAM 05/06/18 05/08/18 History lorazepam 2 mg PO HS PRN 05/06/18 05/08/18 History ondansetron 4 mg PO TID PRN 05/06/18 05/08/18 History oxycodone 5 - 10 mg PO Q6H PRN #15 cap 05/06/18 05/08/18 Rx pantoprazole 40 mg PO QAM 05/06/18 05/08/18 History quetiapine 50 mg PO BID 05/06/18 05/08/18 History sennosides [senna] 8.6 mg PO BID 05/06/18 05/08/18 History topiramate 100 mg PO BID 05/06/18 05/08/18 History zolpidem 10 mg PO HS 05/06/18 05/08/18 History ibuprofen 800 mg PO UD 05/08/18 05/08/18 History tamsulosin [Flomax] 0.4 mg PO HS 05/08/18 05/08/18 History Patient History Medical History Depression (Chronic) Multiple sclerosis (Chronic) Nephrolithiasis (Chronic) Surgical History Status post tonsillectomy (Chronic) Family History Mother Asthma Cervical cancer Social History Current Living Situation: Alone Other Information That Helps Us Care for You: No Feels Safe at Home: Yes Safety Concerns: Feels Safe At This Time Smoking Status: Never smoker Hx Alcohol Use: Yes Alcohol type: wine Alcohol Intake Frequency: a few times a month Hx Substance Use: No Beliefs That Will Affect Care: None Communication Ability: Effective Supercharger Mechanic Required: No Review of Systems Constitutional: + fatigue; no fever and no chills Eyes: no blind spots and no eye pain Ear, Nose, Mouth, Throat: no hearing loss Respiratory: no cough and no dyspnea Cardiovascular: no chest pain Gastrointestinal: no nausea and no vomiting Genitourinary (Female): + dysuria, + urinary frequency and + urinary incontinence Musculoskeletal: no myalgia Integumentary: no rash and no lesions Neurologic: as per Subjective / HPI Psychiatric: + irritability; no hallucinations Hematologic / Lymphatic: no easy bleeding and no easy bruising Physical Exam 2 Vital Signs (Past 24 Hours): Last Vital Signs Temp 36.5 C 05/09/18 08:06 Pulse 81 05/09/18 08:06 Resp 18 05/09/18 08:06 BP 134/87 05/09/18 08:06 Pulse Ox 95 05/09/18 08:06 Physical Exam: The patient is a well-developed, well-nourished adult female. She is lying comfortably in bed in no acute distress. She is alert and fully oriented. Recent and remote memory intact. Attention is normal although patient does exhibit slowed processing speed as well as some difficulty with concentration. Patient is able to name objects and repeat phrases. She exhibits an age-appropriate fund of knowledge and normal vocabulary. Visual vitale full to confrontation. Visual acuity normal. Pupils equal round reactive to light all of the right pupil is somewhat sluggish compared to the left. There is slight perceptual red color desaturation for the right eye as well as compared to the left. Eye movements normal. There is no nystagmus. Facial sensation intact. There is normal facial symmetry and strength. Hearing intact. Palate elevates to midline. Shoulder shrug intact. Tongue protrudes to midline. Sensation intact to all modalities in all 4 limbs. Deep tendon reflexes are brisk throughout. Plantar responses equivocal. There is slight dysmetria with finger to nose and heel to mehta on the right. There is slight dysdiadochokinesia with the right hand. Ophthalmoscopic examination reveals normal-appearing optic disks and posterior segments. No papilledema or hemorrhages. Carotid pulses normal bilaterally, no bruits to auscultation. Gait and station not tested due to safety concerns. Patient exhibits normal muscle strength and tone for all 4 limbs. No atrophy. No abnormal movements observed. Results & Data Laboratory Results A CBC and comprehensive metabolic panel completed yesterday were normal. However, a CBC completed today reveals a mildly low white blood cell count and low H&H.
[2018-05-09] MEDS: cefTRIAXone SODIUM 1,000 MG/50 ML BAG IV SCH (14:24)
--- NOTE | 2018-05-09 14:26 | Hospitalist Progress Note ---
Date of Service May 09, 2018 Assessment & Plan (1) Pyelonephritis: Has history of ureteric and kidney stone and history of pyelonephritis Admitted with another attack of UTI and pyelonephritis secondary to left ureteric stone CT scan that was done on the ninth of this month showed a stone but KUB during this admission did not show any stone Has been started on intravenous ceftriaxone Blood and urine cultures have been sent Clinically a lot better Await sensitivity Present on Admission?: Yes (2) Multiple sclerosis: Has been mobile independently and sometimes needs a wheelchair Denies any acute symptoms now Appreciate neurology input and recommendation Awaiting brain and cervical spine MRI to assess the disease (3) Urinary tract infection: (4) Depression: No acute symptoms DVT prophylaxis On SCDs Increase ambulation Subjective She is a 27-year-old female with significant past medical history of multiple sclerosis and nephrolithiasis, followed by [facility] in the past.Was seen in ED 05/06/18 with left flank pain. CT of abdomen and pelvis demonstrated a 4 mm calculus in the left proximal ureter with mild-moderate hydronephrosis.She was afebrile. WBC was normal. UA demonstrated only a few WBC's and many epithelial cells. 05/09 The patient was seen and examined in medical floor He has been feeling a lot better Only complaints with the left flank pain and left renal angle pain No nausea no vomiting Multiple sclerosis symptoms remain stable Physical Exam 2 Vital Signs (Past 24 Hours): Last Vital Signs Temp 36.5 C 05/09/18 08:06 Pulse 81 05/09/18 08:06 Resp 18 05/09/18 08:06 BP 134/87 05/09/18 08:06 Pulse Ox 95 05/09/18 08:06 Constitutional: WD/WN, vitals as above Eyes: PERRL, conjunctivae normal, anicteric sclerae ENMT: external ear and nose normal, oropharynx normal Neck: trachea midline, no thyromegaly Respiratory: normal respiratory effort, lungs clear to auscultation Cardiovascular: Rate/Rhythm: regular rate and regular rhythm Heart Sounds: normal S1 and normal S2 Gastrointestinal (Abdomen): Inspection/Auscultation: abdomen normal to inspection and normal bowel sounds Percussion/Palpation: + abdomen tender ( Left renal angle and hypogastrium) and abdomen soft Neurologic: No focal neuro deficit Psychiatric: A+Ox3, euthymic affect Results & Data Laboratory Results Short CBC 05/09/18 Range/Units 07:04 WBC 3.40 L (4.8-10.8) K/uL Hgb 10.5 L (12.0-16.0) g/dL Hct 32.9 L (37-47) % Plt Count 194 (130-400) K/uL BMP 05/09/18 07:04 Sodium 141 Potassium 4.2 Chloride 112 H Carbon Dioxide 25 BUN 13 Creatinine 0.89 Glucose 110 H Calcium 8.0 L Medications Administered Current Inpatient Medications Acetaminophen (Tylenol) 650 mg PO Q4H PRN PRN Reason: pain/fever Stop: 06/07/18 18:26 Acetaminophen/Butalbital/Caffeine (Fioricet) 1 tab PO BID PRN PRN Reason: Migraine Headache Last Admin: 05/09/18 00:59 Dose: 1 tab Cyclobenzaprine HCl (Flexeril) 5 mg PO BID PRN PRN Reason: Muscle Spasm Stop: 06/07/18 18:26 Divalproex Sodium (Depakote Delay Release) 250 mg PO BID ANCA Stop: 06/07/18 20:59 Last Admin: 05/09/18 08:34 Dose: 250 mg Docusate Sodium (Colace) 100 mg PO BID PRN PRN Reason: Constipation Stop: 06/07/18 18:26 Ergocalciferol (Vitamin D2) 50,000 units PO TuTh@0900 [facility] Stop: 06/08/18 08:59 Last Admin: 05/09/18 08:31 Dose: 50,000 units Gabapentin (Neurontin) 600 mg PO BID [facility] Stop: 06/07/18 20:59 Last Admin: 05/09/18 08:32 Dose: 600 mg Ceftriaxone Sodium (Rocephin) 1,000 mg in 50 mls @ 100 mls/hr IV DAILY@14 ANCA Stop: 05/19/18 13:59 Last Admin: 05/09/18 14:24 Dose: 100 mls/hr Dextrose/Lactated Ringer's (D5w And Lactated Ringers) 1,000 mls @ 125 mls/hr IV .Q8H [facility] Stop: 06/08/18 04:14 Last Admin: 05/09/18 12:15 Dose: 125 mls/hr Loratadine (Claritin) 10 mg PO QAM ANCA Stop: 06/08/18 08:59 Last Admin: 05/09/18 08:31 Dose: 10 mg Miscellaneous (Order Awaiting Action) 1 ea N/A QS [facility] Stop: 06/08/18 00:00 Last Admin: 05/09/18 12:34 Dose: Not Given Multivitamins/Minerals (Caltrate Plus) 1 tab PO QAM [facility] Stop: 06/08/18 08:59 Last Admin: 05/09/18 08:31 Dose: 1 tab Fingolimod: Non- Formulary Patient's Own Med 1 ea PO QAM [facility] Stop: 06/08/18 08:59 Last Admin: 05/09/18 08:30 Dose: 0.5 mg Nexplanon~Non- Formulary Patient's Own Med 1 ea N/A UD [facility] Stop: 06/08/18 08:59 Ondansetron HCl (Zofran Odt) 4 mg PO TID PRN PRN Reason: Nausea Stop: 06/07/18 18:26 Oxycodone HCl (Roxicodone Immediate Rel) 5 mg PO Q6H PRN PRN Reason: Severe Pain Stop: 05/18/18 18:26 Last Admin: 05/08/18 20:04 Dose: 5 mg Pantoprazole Sodium (Protonix) 40 mg PO QAM [facility] Stop: 06/08/18 08:59 Last Admin: 05/09/18 08:32 Dose: 40 mg Quetiapine Fumarate (Seroquel) 50 mg PO BID [facility] Stop: 06/07/18 20:59 Last Admin: 05/09/18 08:32 Dose: 50 mg Sennosides (Senokot) 8.6 mg PO BID [facility] Stop: 06/07/18 20:59 Last Admin: 05/09/18 08:33 Dose: 8.6 mg Tamsulosin HCl (Flomax) 0.4 mg PO HS [facility] Stop: 06/07/18 20:59 Last Admin: 05/08/18 21:08 Dose: 0.4 mg Topiramate (Topamax) 100 mg PO BID [facility] Stop: 06/07/18 20:59 Last Admin: 05/09/18 08:35 Dose: 100 mg Zolpidem Tartrate (Ambien) 10 mg PO HS PRN PRN Reason: Insomnia Stop: 06/07/18 18:26
[2018-05-09] MEDS ORDERED: GADOBUTROL 65ML VIAL IV PRN (16:28)
--- NOTE | 2018-05-09 17:00 | Magnetic Resonance Report ---
MRI OF THE CERVICAL SPINE COMBO CLINICAL HISTORY: Multiple sclerosis. COMPARISON STUDY: MRI of the cervical spine dated 04/09/2010. TECHNIQUE: MRI of the cervical spine is performed utilizing various T1 and T-weighted sequences in th e axial and sagittal planes. Contrast-enhanced sequences are acquired following the IV administration of 10.5 cc of Gadavist. The examination is modestly degraded by motion artifact. FINDINGS: Cervical spine: Vertebral body height and alignment are maintained throughout the cervical spine. Nor mal marrow signal intensity is preserved throughout the visualized bony structures. The atlantodental articulation appears maintained. The spinous processes are intact. No destructive osseous lesion is identified. Intervertebral discs: Normal in height and signal intensity. Spinal cord: There are 2 subtle foci of T2 signal abnormality within the cervical cord only seen on t he axial MERGE sequence. This is located at C3 on the right and C4 on the left. These are barely disc ernible, with no associated abnormal postcontrast enhancement. Lesions were much better visualized at these sites on the 2010 examination. No new lesion is seen. C2-C3: Unremarkable. C3-C4: Minimal facet arthropathy is of no consequence. The central canal and neural foramina are sinha nt. C4-C5: A posterior disc-osteophyte complex minimally effaces the ventral subarachnoid space. Mild fac et arthropathy is of no consequence. The central canal and neural foramina are clear. C5-C6: Unremarkable. C6-C7: Unremarkable. C7-T1: Unremarkable. Soft tissues: The prevertebral and paraspinous soft tissues are normal as imaged. Brain parenchyma: Foci of abnormal signal are identified within the right aspect of the minerva, likely related to the reported history of multiple sclerosis. IMPRESSION: 1. There are 2 subtle foci of T2 signal abnormality identified within the cervical cord at the site o f previously characterized lesions. These are only faintly discernible on today's examination. No abn ormal postcontrast enhancement is identified. 2. No new lesion is seen. 3. There is no disc herniation or central canal stenosis. 4. Additional findings as above. Dictated: 05/09/2018 4:40 PM Transcribed: 05/09/2018 4:59 PM Ana Lilia [id number] [email or web address] Electronically signed by: Derian Hanks M.D. 05/09/2018 5:00 PM
--- NOTE | 2018-05-09 17:04 | Magnetic Resonance Report ---
MR brain MS wo/w con CLINICAL HISTORY: Multiple sclerosis demyelinating disorder COMPARISON STUDY: 09/24/2016 TECHNIQUE: Utilizing a 1.5 Alpa magnet and dedicated coil, multiplanar, multiecho imaging of the br ain was performed pre and postcontrast administration. IV administration of 10.5 mL of Gadavist cont rast was uneventful. FINDINGS: Findings again consistent with rather diffuse plaque formation in both cerebral hemispheres . Diffusion-weighted images show moderate increase in signal of a periventricular plaque measuring 9 mm at maximum. There is no significant increase in a post contrast signal at this site. All remaining plaques appear to be stable. The right parietal periventricular plaque is considered a new finding. There is a right central pontine focus of increased signal which has been present previously. This sh ows no significant change. There are findings of mild cerebellar atrophy. Ventricular system is midli ne. Sella and parasellar regions are unremarkable. IMPRESSION: 1. New plaque right paraventricular region and demonstrating a moderate increase in signal on diffusi on. 2. All additional plaques appear stable. 3. No significant postcontrast enhancement. 4. All remaining findings including a right central pontine plaque appears stable. 5. The appearance again is consistent with that of multiple sclerosis, with an active right periventr icular plaque not present on prior studies.. The above report was generated using voice recognition software. It may contain grammatical, syntax or spelling errors. Electronically signed by: Jose Sierra M.D. 05/09/2018 5:03 PM
[2018-05-09] MEDS: TAMSULOSIN HCL 0.4 MG CAP PO SCH (20:42)
[2018-05-09 23:58] VITALS: TEMP 97.9
[2018-05-10] MEDS: D5W AND LACTATED RINGERS 1,000 ML IV SCH (06:58)
[2018-05-10 07:05] VITALS: BP 134/86; PULSE 78; O2SAT 99
[2018-05-10] MEDS: QUETIAPINE FUMARATE 25 MG TABLET PO SCH (08:23)
[2018-05-10] MEDS: FINGOLIMOD PO SCH (08:23)
[2018-05-10] MEDS: SENNA 8.6 MG TAB PO SCH (08:24)
[2018-05-10] MEDS: TOPIRAMATE 100 MG TAB PO SCH (08:24)
[2018-05-10] MEDS: DIVALPROEX DELAY RELEASE 250 MG TABEC PO SCH (08:24)
[2018-05-10] MEDS: GABAPENTIN 600 MG TAB PO SCH (08:25)
[2018-05-10] MEDS: LORATADINE 10 MG TAB PO SCH (08:25)
[2018-05-10] MEDS: CALCIUM 600MG + VIT D 400 IU TAB PO SCH (08:25)
[2018-05-10] MEDS: PANTOprazole 40 MG TAB PO SCH (08:25)
--- NOTE | 2018-05-10 11:04 | Neurology Progress Note ---
Date of Service May 10, 2018 Assessment & Plan (1) Multiple sclerosis: Multiple sclerosis diagnosed in 2010. Patient's recently completed brain and cervical spine MRIs suggest that her MS has been fairly stable. She does have one new lesion within the right periventricular region that appears mildly bright on diffusion-weighted images but does not exhibit abnormal postcontrast enhancement. This imaging finding does not appear to be clinically significant and I would not recommend treatment with Solu-Medrol for an MS relapse on the basis of this finding at this time. She should continue with Gilenya for her MS as well as her other medications. The patient should follow-up with Dr. Subramanian in the outpatient clinic for ongoing management of her multiple sclerosis. Subjective Follow-up for multiple sclerosis The patient is a 27-year-old female with a history of multiple sclerosis diagnosed in 2010. She follows with Dr. Subramanian and has been taking Gilenya for her demyelinating disease since 2014. She is currently admitted with UTI/ pyelonephritis and had been complaining of chronic problems with balance, poor concentration, fatigue, and episodic headaches potentially concerning for an MS relapse. An up-to-date brain and cervical spine MRI were completed yesterday. I reviewed the images as well as the radiologist interpretation of these tests. Overall, this patient's MS appears to be fairly stable compared with her last brain MRI completed in 2017. She does have a single new focus of demyelination within the right periventricular l region that did not exhibit postcontrast enhancement although the lesion was mildly bright on diffusion-weighted imaging potentially suggesting an active plaque. Currently, the patient denies headache , vision disturbance, or any new motor or sensory symptoms affecting the left face arm or leg. Constitutional: + fatigue; no fever and no chills Eyes: no blind spots and no eye pain Neurologic: as per Subjective / HPI Physical Exam 2 Vital Signs (Past 24 Hours): Last Vital Signs Temp 36.6 C 05/10/18 07:04 Pulse 78 05/10/18 07:04 Resp 18 05/10/18 07:04 BP 134/86 05/10/18 07:04 Pulse Ox 99 05/10/18 07:04 Physical Exam: The patient is alert and fully oriented. Recent and remote memory intact. Attention seems mildly reduced although concentration is normal. Patient exhibits a normal spontaneous speech pattern as well as an age- appropriate fund of knowledge and vocabulary. Visual vitale full to confrontation. Visual acuity normal. Pupils equal round react light and accommodation. Eye movements normal. There is no nystagmus. Facial sensation intact. There is no facial droop or weakness. Hearing intact. Palate elevates to midline. Shoulder shrug intact. Tongue protrudes to midline. Patient exhibits normal muscle strength and tone for all 4 limbs. No atrophy. No abnormal movements observed.
--- NOTE | 2018-05-10 13:03 | Hospitalist Progress Note ---
Date of Service May 10, 2018 Assessment & Plan (1) Pyelonephritis: per Dr Andre's notes: Has history of ureteric and kidney stone and history of pyelonephritis Admitted with another attack of UTI and pyelonephritis secondary to left ureteric stone CT scan that was done on the ninth of this month showed a stone but KUB during this admission did not show any stone Has been started on intravenous ceftriaxone Blood and urine cultures: negative received Ceftriaxone IV urinary symptoms resolved (2) Ureterolithiasis: CT scan that was done on the ninth of this month showed L ureterolithiasis but KUB during this admission did not show any stone Renal US: no hydronephrosis will consult urology (3) Multiple sclerosis: Neurologist Dr. Nelson consulted Brain and Cervical Spine MRI ordered: stable as per Dr. Nelson continue Fingolimod continue outpatient ff up with Neurologist Dr. Subramanian (4) Depression: No acute symptoms DVT prophylaxis On SCDs, ambulation Disposition d/c home today when ok with Urologist Subjective ff up for left flank pain, dysuria seem with VÍCTOR Boateng throughout whole encounter seen sitting up in bed, comfortable states she feels much better overall states she is thinking clearly again, no problems with ambulation, no other neuro symptoms left flank pain has resolved, no urinary symptoms no hematuria states she feels better overall Constitutional: + fever; no weight loss Ear, Nose, Mouth, Throat: + nasal congestion; no sore throat Gastrointestinal: + nausea and + diarrhea/loose stools; no constipation, no blood in stools and no melena Genitourinary (Female): + as per Subjective / HPI Musculoskeletal: + myalgia; no joint pain Neurologic: as per Subjective / HPI Hematologic / Lymphatic: + easy bruising; no easy bleeding and no lymphadenopathy Physical Exam 2 Vital Signs (Past 24 Hours): Last Vital Signs Temp 36.6 C 05/10/18 07:04 Pulse 78 05/10/18 07:04 Resp 18 05/10/18 07:04 BP 134/86 05/10/18 07:04 Pulse Ox 99 05/10/18 07:04 Physical Exam: General- oriented x 3, not in distress, speaks in sentences with no effort or accessory muscle use Eyes- anicteric Neck- no JVD Lungs- clear breath sounds bilaterally, no rales/wheezes Heart- normal rate, regular rhythm; no murmurs Abdomen- normal bowel sounds, nondistended, soft, nontender no CVA tenderness Extremities- no pretibial edema, no calf tenderness Neuro- alert, oriented x 3; no gross focal neurologic deficits Skin- warm & dry
--- NOTE | 2018-05-10 13:50 | Urology Consultation ---
Date of Consultation May 10, 2018 Assessment & Plan (1) Ureterolithiasis: Nephrolithiasis, clinical dx of pyelonephritis. Afebrile, VSS, pain controlled Patient seems to be progressing appropriately. Repeat imaging reveals no obstruction or cause for urgent concern from perspective. Would recommend total of 14d antibiotic course to treat suspected pyelonephritis. We will follow up as outpatient, arrangements to be made by our office. Thank you for allowing us to participate in the care of Ms. Avila. Please reconsult us with any issues or concerns. Please see additional comments per my attending physician if indicated. History of Present Illness Reason for Consultation: Stones Requesting Physician: Dr. Chris Attending Physician: Blake Reece MD History of Present Illness 27yo F with Hx MS, migraines and nephrolithiasis. Previously established with [facility] for stones, however has not been seen in >3 years with review of records. Presented to ED on 05/06,experiencing dysuria, hematuria, fever at home, worsening flank pain. CT 05/06/18 demonstrated 4mm L proximal ureteral calculus. UA- +wbc, + bacteria, UC&S grew out moderate contamination. Empiric IV ceftriaxone given daily. Presented back to ED on 05/08 for uncontrolled pain. Treated for ?pyelo, MS flare. Repeat KUB with no stones, AMADO , no hydro. Patient reports having episode of extreme pain with urg/freq, followed by inability to void, then all symptoms resolved and able to void during this admission- consistent with passing a distal ureteral stone. Presently patient is feeling well, denies any suprapubic or flank pain. Denies hematuria or dysuria Denies n/v. Tolerating PO diet well. Afebrile, VSS. Offers no concerns or complaints. No family hx stones, denies trouble with UTIs, incomplete emptying, urinary freq /urgency. MS managed by neurology. Allergies Allergy/AdvReac Type Severity Reaction Status Date / Time codeine Allergy Unknown HTN Verified 05/08/18 12:37 latex Allergy Unknown RASH Verified 05/08/18 12:37 morphine Allergy Unknown HTN, Verified 05/08/18 12:37 LIGHTHEADED Home Medications Home Medications Medication Instructions Recorded Confirmed Type fkuojhonwt-[id number]-[id number] 1 - 2 tab PO BID PRN 05/06/18 05/08/18 History [Fioricet] calcium carbonate [Calcium 600] 600 mg PO QAM 05/06/18 05/08/18 History cyclobenzaprine 5 - 10 mg PO BID PRN 05/06/18 05/08/18 History dextroamphetamine-amphetamine 10 mg PO QAM 05/06/18 05/08/18 History divalproex 250 mg PO BID 05/06/18 05/08/18 History docusate sodium [Colace] 100 mg PO BID PRN 05/06/18 05/08/18 History ergocalciferol (vitamin D2) 50,000 unit PO 2XWK 05/06/18 05/08/18 History etonogestrel [Nexplanon] 1 dose SUBDERMAL CONTINOUS 05/06/18 05/08/18 History fingolimod [Gilenya] 0.5 mg PO QAM 05/06/18 05/08/18 History gabapentin 600 mg PO BID 05/06/18 05/08/18 History hydrocodone-acetaminophen 1 tab PO UD PRN 05/06/18 05/08/18 History lidocaine 1 patch TOPICAL DAILY PRN 05/06/18 05/08/18 History loratadine [Claritin] 10 mg PO QAM 05/06/18 05/08/18 History lorazepam 2 mg PO HS PRN 05/06/18 05/08/18 History ondansetron 4 mg PO TID PRN 05/06/18 05/08/18 History oxycodone 5 - 10 mg PO Q6H PRN #15 cap 05/06/18 05/08/18 Rx pantoprazole 40 mg PO QAM 05/06/18 05/08/18 History quetiapine 50 mg PO BID 05/06/18 05/08/18 History sennosides [senna] 8.6 mg PO BID 05/06/18 05/08/18 History topiramate 100 mg PO BID 05/06/18 05/08/18 History zolpidem 10 mg PO HS 05/06/18 05/08/18 History ibuprofen 800 mg PO UD 05/08/18 05/08/18 History tamsulosin [Flomax] 0.4 mg PO HS 05/08/18 05/08/18 History Patient History Medical History Depression (Chronic) Multiple sclerosis (Chronic) Nephrolithiasis (Chronic) Surgical History Status post tonsillectomy (Chronic) Family History Mother Asthma Cervical cancer Social History Current Living Situation: Alone Other Information That Helps Us Care for You: No Feels Safe at Home: Yes Safety Concerns: Feels Safe At This Time Smoking Status: Never smoker Hx Alcohol Use: Yes Alcohol type: wine Alcohol Intake Frequency: a few times a month Hx Substance Use: No Beliefs That Will Affect Care: None Communication Ability: Effective Records Management Technician Required: No Review of Systems Constitutional: no fever and no chills Eyes: no problem reported Ear, Nose, Mouth, Throat: no ear pain Respiratory: no cough and no dyspnea Cardiovascular: no chest pain Gastrointestinal: no abdominal pain, no belching, no nausea and no vomiting Genitourinary (Female): no dysuria, no difficulty urinating, no urinary frequency, no urinary hesitancy, no urinary urgency, no urinary incontinence, no nocturia and no flank pain Musculoskeletal: no back pain and no neck pain Integumentary: no acne Psychiatric: no behavioral changes Endocrine: no fatigue Hematologic / Lymphatic: no unexplained weight loss Physical Exam 2 Vital Signs (Past 24 Hours): Last Vital Signs Temp 36.6 C 05/10/18 07:04 Pulse 78 05/10/18 07:04 Resp 18 05/10/18 07:04 BP 134/86 05/10/18 07:04 Pulse Ox 99 05/10/18 07:04 Constitutional: well developed; no acute distress Eyes: no nystagmus ENMT: Ears: no hearing impairment Neck: trachea midline Respiratory: no respiratory distress, does not use accessory muscles and no cough Cardiovascular: Vessels: no JVD Gastrointestinal (Abdomen): Inspection/Auscultation: abdomen not distended and no abdominal edema Percussion/Palpation: abdomen soft; abdomen nontender Musculoskeletal: Head/Neck/Chest: normocephalic Skin: no rashes, warm and dry Neurologic: awake; not confused and not obtunded somwhat slow to respond. Psychiatric: Orientation: alert and oriented x 3 Eye Contact: + fair eye contact Lymphatic: no lymphadenopathy Results & Data Laboratory Results Laboratory Results - last 48 hr 05/09/18 05/09/18 07:04 07:04 WBC 3.40 L RBC 3.80 L Hgb 10.5 L Hct 32.9 L MCV 86.6 MCH 27.6 MCHC 31.9 L RDW Std Deviation 45.2 RDW Coeff of Kizzy 14.3 Plt Count 194 MPV 9.0 Sodium 141 Potassium 4.2 Chloride 112 H Carbon Dioxide 25 Anion Gap 4.0 BUN 13 Creatinine 0.89 Est Cr Clr Drug Dosing 109.3 Est GFR ( Amer) 102.2 Est GFR (Non-Af Amer) 88.2 BUN/Creatinine Ratio 15.1 Glucose 110 H Calcium 8.0 L
--- NOTE | 2018-05-10 14:36 | Discharge Summary ---
Date of Service May 10, 2018 Admission HPI Per Admitting Provider 27 YO female followed by Dr. Dale for Family Medicine and Dr. Subramanian for Neurology. History of multiple sclerosis and other problems noted below. History of nephrolithiasis, followed by [facility] in the past. Seen in ED 05/06/18 with left flank pain. CT of abdomen and pelvis demonstrated a 4 mm calculus in the left proximal ureter with mild-moderate hydronephrosis. She was afebrile. WBC was normal. UA demonstrated only a few WBC's and many epithelial cells. Discharged to home with prescriptions for tamsulosin and oxycodone. Returned to ED today with worsening flank pain and nausea. Patient states that she had a fever yesterday. Experiencing dysuria and hematuria. Concerned that she is having a flare of MS. Experiencing headache, slurred speech, unsteady gait. Admission Exam Per Admitting Provider Vital Signs (Past 24 Hours): Last Vital Signs Temp 36.5 C 05/08/18 18:27 Pulse 97 H 05/08/18 18:27 Resp 18 05/08/18 18:27 BP 134/89 05/08/18 18:27 Pulse Ox 99 05/08/18 18:27 Constitutional: WD/WN, vitals as above no acute distress Eyes: PERRL, conjunctivae normal, anicteric sclerae ENMT: external ear and nose normal, oropharynx normal Neck: trachea midline, no thyromegaly Respiratory: normal respiratory effort, lungs clear to auscultation Cardiovascular: Rate/Rhythm: regular rate Heart Sounds: no gallop, no murmur and no cardiac rub Vessels: no JVD Extremities: normal capillary refill ; no calf tenderness and no edema Gastrointestinal (Abdomen): Inspection/Auscultation: normal bowel sounds Percussion/Palpation: + abdomen tender (left flank) and abdomen soft Musculoskeletal: Head/Neck/Chest: neck supple Extremities: strength 5/5 throughout; no cyanosis and no clubbing Skin: no rashes, warm and dry Neurologic: somnolent slow mentation PERRL, EOMI no facial palsy mild dysarthria patellar DTR's 1/2 bilat plantar reflexes downgoing bilat Psychiatric: Orientation: oriented x 3 Lymphatic: no cervical lymphadenopathy Principal Diagnosis PYELONEPHRITIS, LEFT URETERAL STONE Discharge Exam Vital Signs (Past 24 Hours): Last Vital Signs Temp 36.6 C 05/10/18 07:04 Pulse 78 05/10/18 07:04 Resp 18 05/10/18 07:04 BP 134/86 05/10/18 07:04 Pulse Ox 99 05/10/18 07:04 Physical Exam: General- oriented x 3, not in distress, speaks in sentences with no effort or accessory muscle use Eyes- anicteric Neck- no JVD Lungs- clear breath sounds bilaterally, no rales/wheezes Heart- normal rate, regular rhythm; no murmurs Abdomen- normal bowel sounds, nondistended, soft, nontender no CVA tenderness Extremities- no pretibial edema, no calf tenderness Neuro- alert, oriented x 3; no gross focal neurologic deficits Skin- warm & dry Discharge Data Allergies Allergy/AdvReac Type Severity Reaction Status Date / Time codeine Allergy Unknown HTN Verified 05/08/18 12:37 latex Allergy Unknown RASH Verified 05/08/18 12:37 morphine Allergy Unknown HTN, Verified 05/08/18 12:37 LIGHTHEADED Consultations 05/08/18 15:14 ED Decision to Admit Stat 05/08/18 18:27 Consult Neurology Routine 05/10/18 11:28 Consult Urology Routine Ordered Studies 2 05/06/18 CT SCAN OF THE ABDOMEN AND PELVIS WITH IV CONTRAST CLINICAL HISTORY: Left flank pain and hematuria. COMPARISON STUDY: Abdominal CT dated 02/10/2010. TECHNIQUE: Following the IV administration of 94 cc of Optiray 320, CT scan of the abdomen and pelvis is performed from the lung bases to the proximal femora. Images are reviewed in the axial, sagittal, and coronal planes. IV contrast was administered without complication. A dose lowering technique was utilized adhering to the principles of ALARA. CT DOSE: 1298.33 mGy.cm FINDINGS: Lung bases: The heart is normal in size and without pericardial effusion. The lung bases are clear. Liver: The contrast-enhanced liver is normal in size, contour, and attenuation. Fatty infiltration is noted adjacent to the falciform ligament. There is no intrahepatic biliary ductal dilatation. The hepatic veins and portal veins are patent. Gallbladder: Unremarkable. Spleen: Normal in size and attenuation. Pancreas: Unremarkable. Adrenal glands: Unremarkable. Kidneys: The contrast enhanced kidneys are normal in size. There is a 4 mm obstructing calculus in the left proximal ureter seen on image #[id number] at the level of L3. This causes mild to moderate left-sided hydroureteronephrosis. A second punctate calculus is present in the left ureter just above obstructing stone. There is at least one additional nonobstructing calculus in the left kidney measuring up to 4 mm. There is at least one nonobstructing right renal calculus which measures up to 3 mm. The there is heterogeneous enhancement of the left kidney with associated perinephric stranding. The right kidney enhances homogeneously and there is no right-sided hydronephrosis. Abdominal vasculature: The abdominal aorta is normal in course and caliber. Bowel: The small bowel and colon are normal in course and caliber. The appendix is well-visualized and normal. Peritoneum: There is no intraperitoneal free air or abdominal ascites. There is a fat-containing umbilical hernia. Lymphadenopathy: None. Pelvic viscera: The bladder, uterus, and adnexa are normal as visualized. There are small ovarian follicles. Trace free fluid is noted in the cul-de-sac. Skeletal structures: No lytic or blastic lesions are seen. Mild sclerotic change is noted in the sacroiliac joints. IMPRESSION: 1. There is a 4 mm obstructing calculus in the left proximal ureter which causes mild to moderate left-sided hydroureteronephrosis. 2. There is an additional punctate calculus in the left proximal ureter just above the obstructing stone. 3. Additional small bilateral nonobstructing calculi are present in both kidneys. 4. There is left-sided perinephric stranding and heterogeneous enhancement of the left kidney. This is likely related to obstruction/hydronephrosis. Correlate clinically and with urinalysis for evidence of superimposed urinary tract infection. 5. Trace nonspecific free fluid in cul-de-sac is likely within physiologic limits. Electronically signed by: Derian Hanks M.D. 05/06/2018 6:57 AM 05/08/18 11:34 US renal/blad retro comp Stat: KUB HISTORY: L flank pain hx stones COMPARISON: KUB 03/28/2014. FINDINGS: The bowel gas pattern is unremarkable. There are no dilated loops of small bowel to suggest an obstruction. The right renal shadow is partially obscured by overlying bowel gas. No right renal calculi. No ureteral calculi identified. There is a 3 mm stone within the lower pole the left kidney. Moderate well-formed stool within the colon. No pneumoperitoneum or pneumatosis. IMPRESSION: Left-sided nephrolithiasis. No ureteral calculi identified. 05/09/18 12:12 MR brain MS wo/w con Routine MR brain MS wo/w con CLINICAL HISTORY: Multiple sclerosis demyelinating disorder COMPARISON STUDY: 09/24/2016 TECHNIQUE: Utilizing a 1.5 Alpa magnet and dedicated coil, multiplanar, multiecho imaging of the brain was performed pre and postcontrast administration. IV administration of 10.5 mL of Gadavist contrast was uneventful. FINDINGS: Findings again consistent with rather diffuse plaque formation in both cerebral hemispheres. Diffusion-weighted images show moderate increase in signal of a periventricular plaque measuring 9 mm at maximum. There is no significant increase in a post contrast signal at this site. All remaining plaques appear to be stable. The right parietal periventricular plaque is considered a new finding. There is a right central pontine focus of increased signal which has been present previously. This shows no significant change. There are findings of mild cerebellar atrophy. Ventricular system is midline. Sella and parasellar regions are unremarkable. IMPRESSION: 1. New plaque right paraventricular region and demonstrating a moderate increase in signal on diffusion. 2. All additional plaques appear stable. 3. No significant postcontrast enhancement. 4. All remaining findings including a right central pontine plaque appears stable. 5. The appearance again is consistent with that of multiple sclerosis, with an active right periventricular plaque not present on prior studies.. The above report was generated using voice recognition software. It may contain grammatical, syntax or spelling errors. Electronically signed by: Jose Sierra M.D. 05/09/2018 5:03 PM MR cervical spine wo/w con Routine MRI OF THE CERVICAL SPINE COMBO CLINICAL HISTORY: Multiple sclerosis. COMPARISON STUDY: MRI of the cervical spine dated 04/09/2010. TECHNIQUE: MRI of the cervical spine is performed utilizing various T1 and T- weighted sequences in the axial and sagittal planes. Contrast-enhanced sequences are acquired following the IV administration of 10.5 cc of Gadavist. The examination is modestly degraded by motion artifact. FINDINGS: Cervical spine: Vertebral body height and alignment are maintained throughout the cervical spine. Normal marrow signal intensity is preserved throughout the visualized bony structures. The atlantodental articulation appears maintained. The spinous processes are intact. No destructive osseous lesion is identified. Intervertebral discs: Normal in height and signal intensity. Spinal cord: There are 2 subtle foci of T2 signal abnormality within the cervical cord only seen on the axial MERGE sequence. This is located at C3 on the right and C4 on the left. These are barely discernible, with no associated abnormal postcontrast enhancement. Lesions were much better visualized at these sites on the 2011 examination. No new lesion is seen. C2-C3: Unremarkable. C3-C4: Minimal facet arthropathy is of no consequence. The central canal and neural foramina are patent. C4-C5: A posterior disc-osteophyte complex minimally effaces the ventral subarachnoid space. Mild facet arthropathy is of no consequence. The central canal and neural foramina are clear. C5-C6: Unremarkable. C6-C7: Unremarkable. C7-T1: Unremarkable. Soft tissues: The prevertebral and paraspinous soft tissues are normal as imaged. Brain parenchyma: Foci of abnormal signal are identified within the right aspect of the minerva, likely related to the reported history of multiple sclerosis. IMPRESSION: 1. There are 2 subtle foci of T2 signal abnormality identified within the cervical cord at the site of previously characterized lesions. These are only faintly discernible on today's examination. No abnormal postcontrast enhancement is identified. 2. No new lesion is seen. 3. There is no disc herniation or central canal stenosis. 4. Additional findings as above. Hospital Course (1) Pyelonephritis: per Dr Andre's notes: Has history of ureteric and kidney stone and history of pyelonephritis Admitted with another attack of UTI and pyelonephritis secondary to left ureteric stone CT scan that was done on the ninth of this month showed a stone but KUB during this admission did not show any stone Has been started on intravenous ceftriaxone Urine culture: More than three types of organisms present, all moderate counts mixed probable skin whit. No further identifications or sensitivities to follow. Blood culture: negative- Preliminary received Ceftriaxone IV x 3 days urinary symptoms resolved consulted Urology- [facility] recommend Cefuroxime 250mg BID x 10 days Urology Clinic will be calling her for a ff up appointment (2) Ureterolithiasis: CT scan that was done on the ninth of this month showed L ureterolithiasis but KUB during this admission did not show any stone Renal US: no hydronephrosis no further intervention at this point as per Urology Urology Clinic will be calling her for a ff up appointment (3) Multiple sclerosis: Neurologist Dr. Nelson consulted Brain and Cervical Spine MRI ordered: stable as per Dr. Nelson "Patient's recently completed brain and cervical spine MRIs suggest that her MS has been fairly stable. She does have one new lesion within the right periventricular region that appears mildly bright on diffusion-weighted images but does not exhibit abnormal postcontrast enhancement. This imaging finding does not appear to be clinically significant and I would not recommend treatment with Solu-Medrol for an MS relapse on the basis of this finding at this time. She should continue with Gilenya for her MS as well as her other medications. The patient should follow-up with Dr. Subramanian in the outpatient clinic for ongoing management of her multiple sclerosis." continue Gilenya continue outpatient ff up with Neurologist Dr. Subramanian (4) Depression: No acute symptoms Disposition d/c home ff up with PCP Dr. Robb Stewart 05/16/18 ff up with Urologist Brian Pride as scheduled ff up with Neurologist Dr. Subramanian as scheduled Total Time Total Time Spent Total Time Spent (In Minutes): 40 minutes Discharge Plan Discharge Items Patient Disposition: Home - Self-Care Reason For Visit: ALTERED MENTAL STATUS Discharge Diagnosis: PYELONEPHRITIS Condition: Fair Discharge Goals: Diagnostic testing and Therapeutic intervention Activity: Resume your previous activity Activity Comment: RESUME ACTIVITY GRADUALLY TOLERATED Lifting: Wait until after follow-up appointment Exercise/Sports: Wait until after follow-up appointment Driving/Machine Use Comment: NO DRIVING Non-emergency contact: Primary Care Provider Call non-emergency contact if: you have any medication questions, your symptoms worsen, your pain is not controlled, your pain is worsening, your pain is unusual for you, your pain is concerning for you and you have a fever Diet: Regular Addtl Provider Instructions: PLEASE FOLLOW UP WITH [facility]YSICIAN DR. GUILLEN ON 05/16/18 AT 12:45 PM. FOLLOW UP WITH [facility] SCHEDULED. THEIR CLINIC WILL BE CALLING YOU FOR THE APPOINTMENT. TAKE A PROBIOTIC DAILY WHILE ON ANTIBIOTICS AND AT LEAST 1 WEEK AFTER FINISHING YOUR ANTIBIOTIC COURSE. DRINK PLENTY OF FLUIDS. CALL PRIMARY CARE PHYSICIAN OR RETURN TO ER IMMEDIATELY IF WITH RECURRENCE OR WORSENING OF SYMPTOMS, FEVER/CHILLS, URINARY SYMPTOMS, WEAKNESS, DIARRHEA. Prescriptions: New cefuroxime axetil 250 mg tablet 250 mg PO BID 10 Days Qty: 20 RF: 0 Continue cyclobenzaprine 10 mg tablet 5 - 10 mg PO BID PRN (Reason: Muscle Spasm) RF: 0 gabapentin 600 mg tablet 600 mg PO BID RF: 0 divalproex 250 mg tablet,delayed release (DR/EC) 250 mg PO BID RF: 0 hydrocodone-acetaminophen 10-325 mg tablet 1 tab PO UD PRN (Reason: Pain) RF: 0 calcium carbonate [Calcium 600] 600 mg calcium (1,500 mg) Tablet 600 mg PO QAM RF: 0 pantoprazole 40 mg tablet,delayed release (DR/EC) 40 mg PO QAM RF: 0 lorazepam 1 mg tablet 2 mg PO HS PRN (Reason: Sleep) RF: 0 zolpidem 10 mg tablet 10 mg PO HS RF: 0 topiramate 100 mg tablet 100 mg PO BID RF: 0 dextroamphetamine-amphetamine 5 mg tablet 10 mg PO QAM RF: 0 loratadine [Claritin] 10 mg Tablet 10 mg PO QAM RF: 0 quetiapine 50 mg tablet 50 mg PO BID RF: 0 fingolimod [Gilenya] 0.5 mg capsule 0.5 mg PO QAM RF: 0 sennosides [senna] 8.6 mg Tablet 8.6 mg PO BID RF: 0 docusate sodium [Colace] 100 mg Capsule 100 mg PO BID PRN (Reason: Constipation) RF: 0 ondansetron 4 mg Tablet,Disintegrating 4 mg PO TID PRN (Reason: Nausea) RF: 0 etonogestrel [Nexplanon] 68 mg Implant 1 dose Subdermal CONTINOUS RF: 0 ergocalciferol (vitamin D2) 50,000 unit Capsule 50,000 unit PO 2XWK RF: 0 lidocaine 5 % Adhesive Patch,Medicated 1 patch TOPICAL DAILY PRN (Reason: Pain) RF: 0 [id number]-eiwiogwehdhpv-jfzw [Fioricet] 50-300-40 mg Capsule 1 - 2 tab PO BID PRN (Reason: Migraine Headache) RF: 0 oxycodone 5 mg capsule 5 - 10 mg PO Q6H PRN (Reason: pain) Qty: 15 RF: 0 ibuprofen 200 mg Capsule 800 mg PO UD RF: 0 tamsulosin [Flomax] 0.4 mg capsule 0.4 mg PO HS RF: 0 Stand-Alone Forms: [facility] Discharge Orders: Discharge Order (Routine); Ordered 05/10/18 Ordered By: Blake Reece Admission Data Admit Date/Time: 05/08/18 15:54 Attending Provider: Blake Reece Admit Provider: Hollis Yoon Primary Care Provider: Tracee Dale Other Providers: Hollis Yoon ; Jevon Subramanian III ; Ann Andre ; Gonzales Tirado ; Daniel Caba ; Barron Hu I. ; Suleman Joyner ; Alycia Guerrero ; Fredis Escobedo II ; Janett Ruiz Service: Medical
[2018-05-10] MEDS: cefTRIAXone SODIUM 1,000 MG/50 ML BAG IV SCH (14:44)
== END 2018-05-10 18:00 | disposition home or self-care (01) | DRG 690 ==
LOC: ED 11:08 → 2W 15:54 → SUATTDRO 15:54 → 2W 17:48